=== PATIENT | female | born 1965 | race Caucasian/White ===

== ENCOUNTER 2016-11-13 12:33 | Inpatient (IN) | payer BC ==
[2016-11-13] VITALS (9 sets, daily range): BP systolic 145–170
[~2016-11-13] VITALS: Ht 162.6 cm; Wt 82.3 kg
[2016-11-13] MEDS ORDERED: DILTIAZEM HCL 125 MG in D5W 100 ML IV ONE (13:00)
[2016-11-13] MEDS ORDERED: DILTIAZEM HCL 25 MG/5 ML VIAL IVP ONE ×2 (13:00→14:15)
[2016-11-13] MEDS ORDERED: NACL 0.9% 1,000 ML IV ONE (13:00)
[2016-11-13] MEDS ORDERED: DILTIAZEM HCL 25 MG/5 ML VIAL ONE (13:01)
[2016-11-13] MEDS ORDERED: DILTIAZEM HCL 125 MG/25 ML VIAL IV ONE ×4 (13:17→21:57)
[2016-11-13 13:25] LABS: HEMATOCRIT 46.6 % (36-48); HEMOGLOBIN 15.5 g/dL (12.0-16.0); MEAN CORPUSCULAR HEMOGLOBIN 34 pg (27-31); MEAN CORPUSCULAR HGB CONC 33 % (32-36); MEAN CORPUSCULAR VOLUME 101 fL (79.0-98.0); PLATELET COUNT (AUTO) 432 K/uL (130-430); RED BLOOD CELL COUNT(AUTO) 4.61 MIL/uL (4.2-6.2); RED CELL DISTRIBUTION WIDTH 18.7 % (9.0-15.0); WHITE BLOOD COUNT (AUTO) 9.6 K/uL (4.8-10.8)
[2016-11-13] MEDS ORDERED: DILTIAZEM HCL IV ONE (13:30)
[2016-11-13] MEDS ORDERED: NS IV ONE (13:30)
[2016-11-13 13:32] LABS: CALCIUM 8.9 mg/dL (8.4-11.0); CREATININE 0.63 mg/dL (0.55-1.30); POTASSIUM 3.6 mmol/L (3.5-5.1)
[2016-11-13 13:37] LABS: PROTHROMBIN TIME 10.7 SECS (9.5-12.5)
[2016-11-13 13:38] LABS: TOTAL BILIRUBIN 0.5 mg/dL (0.0-1.0)
[2016-11-13 13:39] LABS: ALBUMIN 3.3 g/dL (3.4-4.8); TOTAL PROTEIN, SERUM 7.9 g/dL (6.4-8.3)
[2016-11-13 13:50] LABS: BAND % (MANUAL) 2 % (0-6); BASOPHILS % (MANUAL) 0 % (0-2); EOSINOPHILS % (MANUAL) 1 % (0-7); LYMPHOCYTES % (MANUAL) 20 % (20-46); MONOCYTES % (MANUAL) 8 % (0-11)
[2016-11-13 14:29] LABS: BILIRUBIN,URINE NEGATIVE (NEGATIVE); CLARITY/URINE SL CLOUDY (CLEAR); COLOR,URINE YELLOW (YELLOW); GLUCOSE,URINE NEGATIVE (NEGATIVE); KETONES,URINE 1+ (NEGATIVE); LEUKOCYTE ESTERASE ,URINE TRACE (NEGATIVE); NITRITE, URINE POSITIVE (NEGATIVE); PROTEIN URINE NEGATIVE (NEGATIVE)
[2016-11-13 14:51] LABS: BLOOD, URINE TRACE (NEGATIVE)
[2016-11-13 15:07] LABS: BACTERIA,URINE MANY /HPF (None Seen); RBC,URINE 0-3 /HPF (0-3)
[2016-11-13 15:08] LABS: MUCUS,URINE None Seen /LPF (None Seen)
[2016-11-13] MEDS ORDERED: cefTRIAXone 1 GM IVPB PREMIX 50 ML IV ONE (15:30)
[2016-11-13] MEDS ORDERED: BANANA BAG 1 EA, MVI 10 ML, THIAMINE HCL 100 MG, FOLIC ACID 1 MG, MAGNESIUM SULFATE 1 G... IV ONE ×5 (16:00)
[2016-11-13] MEDS ORDERED: DIGOXIN 0.5 MG/2 ML AMP IVP ONE ×2 (17:30→21:00)
[2016-11-13] MEDS ORDERED: DIGOXIN 0.5 MG/2 ML AMP ONE (17:42)
[2016-11-13] MEDS ORDERED: LORazepam 1 MG TABLET PO PRN (18:00)
[2016-11-13] MEDS ORDERED: FAMOTIDINE PF 20 MG/2 ML VIAL IVP ONE (18:00)
[2016-11-13] MEDS: LORazepam 2 MG/ML VIAL IVP PRN (18:23)
[2016-11-13] MEDS: LACTOBACILLUS RHAMNOSUS GG 1 CAP CAPSULE PO SCH (20:49)
[2016-11-13] MEDS: ENOXAPARIN SODIUM 40 MG/0.4 ML SYRINGE SUBCUT SCH (20:49)
[2016-11-13] MEDS: FAMOTIDINE PF 20 MG/2 ML VIAL IVP SCH (20:50)
[2016-11-13] MEDS: CEPHALEXIN 250 MG/5 ML, 100 ML BTL PO SCH ×2 (20:50→23:11)
[2016-11-13] MEDS: CIPROFLOXACIN LACT 400 MG/D5W 200 ML IV SCH (20:50)
[2016-11-13] MEDS ORDERED: DILTIAZEM HCL 180 MG CAP.SR.24H PO ONE ×2 (21:45→21:50)
[2016-11-13] MEDS ORDERED: DILTIAZEM HCL 125 MG in D5W 100 ML IV SCH (21:45)
[2016-11-13] MEDS ORDERED: FLU VACC QS 2016-17(36MOS+)/PF 0.5 ML/SYR SYRINGE I.M. PRN (22:45)
[2016-11-14] VITALS (24 sets, daily range): BP systolic 118–160
[2016-11-14] MEDS ORDERED: DIGOXIN 0.5 MG/2 ML AMP IVP ONE (01:45)
[2016-11-14] MEDS: LORazepam 2 MG/ML VIAL IVP PRN ×2 (05:10→21:13)
[2016-11-14] MEDS: CEPHALEXIN 250 MG/5 ML, 100 ML BTL PO SCH ×4 (05:10→23:39)
[2016-11-14 06:29] LABS: BASOPHILS # (AUTO) 0.1 K/uL (0.0-0.2); EOSINOPHILS # (AUTO) 0.1 K/uL (0.0-0.4); EOSINOPHILS % (AUTO) 0.9 % (0.0-4.0); HEMATOCRIT 43.3 % (36-48); HEMOGLOBIN 14.5 g/dL (12.0-16.0); LYMPHOCYTES # (AUTO) 1.4 K/uL (1.0-5.5); LYMPHOCYTES % (AUTO) 18.7 % (20.5-51.5); MEAN CORPUSCULAR HEMOGLOBIN 34 pg (27-31); MEAN CORPUSCULAR HGB CONC 34 % (32-36); MEAN CORPUSCULAR VOLUME 101 fL (79.0-98.0); MONOCYTES # (AUTO) 0.5 K/uL (0.0-1.0); MONOCYTES % (AUTO) 7.2 % (1.7-9.3); NEUTROPHILS # (AUTO) 5.1 K/uL (1.8-7.7); NEUTROPHILS % (AUTO) 72.2 % (40.0-70.0); PLATELET COUNT (AUTO) 383 K/uL (130-430); RED BLOOD CELL COUNT(AUTO) 4.29 MIL/uL (4.2-6.2); RED CELL DISTRIBUTION WIDTH 18.8 % (9.0-15.0); WHITE BLOOD COUNT (AUTO) 7.2 K/uL (4.8-10.8)
[2016-11-14 06:42] LABS: ALBUMIN 2.8 g/dL (3.4-4.8); CALCIUM 8.9 mg/dL (8.4-11.0); CREATININE 0.6 mg/dL (0.55-1.30); POTASSIUM 3.8 mmol/L (3.5-5.1); TOTAL BILIRUBIN 0.5 mg/dL (0.0-1.0)
[2016-11-14] MEDS: CIPROFLOXACIN LACT 400 MG/D5W 200 ML IV SCH ×2 (08:49→21:05)
[2016-11-14] MEDS: FOLIC ACID 1 MG TABLET PO SCH (08:54)
[2016-11-14] MEDS: THIAMINE HCL 100 MG TABLET PO SCH (08:54)
[2016-11-14] MEDS: ENOXAPARIN SODIUM 40 MG/0.4 ML SYRINGE SUBCUT SCH ×2 (08:54→21:07)
[2016-11-14] MEDS: FAMOTIDINE PF 20 MG/2 ML VIAL IVP SCH ×2 (08:54→21:05)
[2016-11-14] MEDS: LACTOBACILLUS RHAMNOSUS GG 1 CAP CAPSULE PO SCH ×2 (08:55→21:06)
[2016-11-14] MEDS ORDERED: DILTIAZEM HCL 125 MG in D5W 100 ML IV SCH (09:25)
[2016-11-14] MEDS ORDERED: DILTIAZEM HCL 120 MG CAP.SR.24H PO SCH (11:45)
[2016-11-14] MEDS ORDERED: DILTIAZEM HCL 120 MG CAP.SR.24H PO ONE (11:45)
[2016-11-14] MEDS: LamoTRIgine 100 MG TABLET PO SCH ×2 (12:00→17:31)
[2016-11-14] MEDS: DULoxetine HCL 30 MG CAPSULE.DR (CYMBALTA) PO ONE ×2 (12:15→17:31)
[2016-11-14] MEDS: LATANOPROST 2.5 ML DROPS (XALATAN) OP SCH ×3 (12:15→21:12)
[2016-11-14] MEDS: AMIODARONE HCL 200 MG TABLET PO SCH ×2 (17:31→21:06)
[2016-11-14] MEDS: SIMVASTATIN 10 MG TABLET PO SCH (17:33)
[2016-11-14] MEDS: DILTIAZEM HCL 120 MG CAP.SR.24H PO SCH (21:06)
[2016-11-15] VITALS (21 sets, daily range): BP systolic 116–160
[2016-11-15] MEDS ORDERED: TEMAZEPAM 15 MG CAPSULE PO PRN
[2016-11-15] MEDS ORDERED: traMADol HCL HCL 50 MG TABLET (ULTRAM) PO PRN ×2
[2016-11-15] MEDS ORDERED: traMADol HCL HCL 50 MG TABLET (ULTRAM) ONE (00:16)
[2016-11-15] MEDS: CEPHALEXIN 250 MG/5 ML, 100 ML BTL PO SCH ×3 (05:53→18:31)
[2016-11-15] MEDS: AMIODARONE HCL 200 MG TABLET PO SCH ×3 (05:55→21:26)
[2016-11-15 06:32] LABS: ALBUMIN 2.8 g/dL (3.4-4.8); CALCIUM 8.9 mg/dL (8.4-11.0); CREATININE 0.75 mg/dL (0.55-1.30); POTASSIUM 3.2 mmol/L (3.5-5.1); TOTAL BILIRUBIN 0.4 mg/dL (0.0-1.0); TOTAL PROTEIN, SERUM 6.7 g/dL (6.4-8.3)
[2016-11-15 06:38] LABS: BASOPHILS # (AUTO) 0.1 K/uL (0.0-0.2); BASOPHILS % (AUTO) 1.2 % (0.0-2.0); EOSINOPHILS # (AUTO) 0.1 K/uL (0.0-0.4); EOSINOPHILS % (AUTO) 2.4 % (0.0-4.0); HEMATOCRIT 42.3 % (36-48); HEMOGLOBIN 13.5 g/dL (12.0-16.0); LYMPHOCYTES # (AUTO) 1.4 K/uL (1.0-5.5); MEAN CORPUSCULAR HEMOGLOBIN 33 pg (27-31); MEAN CORPUSCULAR HGB CONC 32 % (32-36); MEAN CORPUSCULAR VOLUME 102 fL (79.0-98.0); MONOCYTES # (AUTO) 0.4 K/uL (0.0-1.0); MONOCYTES % (AUTO) 7.5 % (1.7-9.3); NEUTROPHILS # (AUTO) 3.4 K/uL (1.8-7.7); NEUTROPHILS % (AUTO) 62.9 % (40.0-70.0); PLATELET COUNT (AUTO) 326 K/uL (130-430); RED BLOOD CELL COUNT(AUTO) 4.13 MIL/uL (4.2-6.2); RED CELL DISTRIBUTION WIDTH 17.8 % (9.0-15.0); WHITE BLOOD COUNT (AUTO) 5.4 K/uL (4.8-10.8)
[2016-11-15] MEDS: FAMOTIDINE PF 20 MG/2 ML VIAL IVP SCH ×2 (08:30→21:23)
[2016-11-15] MEDS: CIPROFLOXACIN LACT 400 MG/D5W 200 ML IV SCH ×2 (08:30→21:27)
[2016-11-15] MEDS: DILTIAZEM HCL 120 MG CAP.SR.24H PO SCH ×2 (08:31→21:24)
[2016-11-15] MEDS: FOLIC ACID 1 MG TABLET PO SCH (08:31)
[2016-11-15] MEDS: DULoxetine HCL 30 MG CAPSULE.DR (CYMBALTA) PO SCH (08:31)
[2016-11-15] MEDS: LACTOBACILLUS RHAMNOSUS GG 1 CAP CAPSULE PO SCH ×2 (08:31→21:25)
[2016-11-15] MEDS: ENOXAPARIN SODIUM 40 MG/0.4 ML SYRINGE SUBCUT SCH ×2 (08:32→21:25)
[2016-11-15] MEDS: LamoTRIgine 100 MG TABLET PO SCH (08:44)
[2016-11-15] MEDS: THIAMINE HCL 100 MG TABLET PO SCH (09:46)
[2016-11-15] MEDS ORDERED: POTASSIUM CHLORIDE 20 MEQ/PKT PACKET PO ONE (10:00)
[2016-11-15] MEDS ORDERED: POTASSIUM CHLORIDE 20 MEQ TAB.PRT.SR PO ONE (14:00)
[2016-11-15] MEDS ORDERED: buPROPion HCL 150 MG XL TAB PO ONE (14:15)
[2016-11-15 14:46] LABS: THYROID STIMULATING HORMONE 2.73 uIu/mL (0.34-4.82)
[2016-11-15] MEDS: SIMVASTATIN 10 MG TABLET PO SCH (18:31)
[2016-11-15] MEDS: LATANOPROST 2.5 ML DROPS (XALATAN) OP SCH (21:22)
[2016-11-15] MEDS: POTASSIUM CHLORIDE 20 MEQ/PKT PACKET PO SCH (21:28)
[2016-11-15] MEDS ORDERED: CARISOPRODOL 350 MG TABLET PO PRN (23:00)
[2016-11-16] MEDS: CEPHALEXIN 250 MG/5 ML, 100 ML BTL PO SCH ×3 (00:16→12:41)
[2016-11-16 04:18] VITALS: BP_SYST 120
[2016-11-16 06:21] LABS: BASOPHILS # (AUTO) 0.1 K/uL (0.0-0.2); BASOPHILS % (AUTO) 0.9 % (0.0-2.0); EOSINOPHILS # (AUTO) 0.2 K/uL (0.0-0.4); EOSINOPHILS % (AUTO) 2.6 % (0.0-4.0); HEMATOCRIT 37.4 % (36-48); HEMOGLOBIN 12.4 g/dL (12.0-16.0); LYMPHOCYTES # (AUTO) 1.4 K/uL (1.0-5.5); LYMPHOCYTES % (AUTO) 21.4 % (20.5-51.5); MEAN CORPUSCULAR HEMOGLOBIN 34 pg (27-31); MEAN CORPUSCULAR HGB CONC 33 % (32-36); MEAN CORPUSCULAR VOLUME 102 fL (79.0-98.0); MONOCYTES # (AUTO) 0.4 K/uL (0.0-1.0); MONOCYTES % (AUTO) 5.7 % (1.7-9.3); NEUTROPHILS # (AUTO) 4.4 K/uL (1.8-7.7); NEUTROPHILS % (AUTO) 69.4 % (40.0-70.0); PLATELET COUNT (AUTO) 252 K/uL (130-430); RED BLOOD CELL COUNT(AUTO) 3.66 MIL/uL (4.2-6.2); RED CELL DISTRIBUTION WIDTH 17.1 % (9.0-15.0); WHITE BLOOD COUNT (AUTO) 6.5 K/uL (4.8-10.8)
[2016-11-16 06:37] LABS: ALBUMIN 2.5 g/dL (3.4-4.8); CALCIUM 8.6 mg/dL (8.4-11.0); CREATININE 0.66 mg/dL (0.55-1.30); POTASSIUM 3.5 mmol/L (3.5-5.1); TOTAL BILIRUBIN 0.4 mg/dL (0.0-1.0)
[2016-11-16] MEDS: AMIODARONE HCL 200 MG TABLET PO SCH (06:42)
[2016-11-16 08:00] VITALS: BP_SYST 136
[2016-11-16] MEDS ORDERED: buPROPion HCL 150 MG XL TAB PO SCH (09:00)
[2016-11-16] MEDS: POTASSIUM CHLORIDE 20 MEQ/PKT PACKET PO SCH (09:08)
[2016-11-16] MEDS: DILTIAZEM HCL 120 MG CAP.SR.24H PO SCH (09:09)
[2016-11-16] MEDS: LamoTRIgine 100 MG TABLET PO SCH (09:09)
[2016-11-16] MEDS: LACTOBACILLUS RHAMNOSUS GG 1 CAP CAPSULE PO SCH (09:09)
[2016-11-16] MEDS: FOLIC ACID 1 MG TABLET PO SCH (09:09)
[2016-11-16] MEDS: DULoxetine HCL 30 MG CAPSULE.DR (CYMBALTA) PO SCH (09:09)
[2016-11-16] MEDS: FAMOTIDINE PF 20 MG/2 ML VIAL IVP SCH (09:10)
[2016-11-16] MEDS: THIAMINE HCL 100 MG TABLET PO SCH (09:14)
[2016-11-16] MEDS: ENOXAPARIN SODIUM 40 MG/0.4 ML SYRINGE SUBCUT SCH (09:17)
[2016-11-16] MEDS: CIPROFLOXACIN LACT 400 MG/D5W 200 ML IV SCH (09:17)
[2016-11-16 11:37] VITALS: BP_SYST 124
[2016-11-16] MEDS ORDERED: ASPIRIN 81 MG TAB.CHEW PO ONE (11:45)
[2016-11-16 13:47] VITALS: BP_SYST 124
[2016-11-16] MEDS ORDERED: FAMOTIDINE 20 MG TABLET PO SCH (21:00)
[2016-11-16] MEDS ORDERED: AMIODARONE HCL 200 MG TABLET PO SCH (21:00)
[2016-11-17] MEDS ORDERED: ASPIRIN 81 MG TAB.CHEW PO SCH (09:00)
[2016-11-17] MEDS ORDERED: DILTIAZEM HCL 240 MG CAP.SR.24H PO SCH (09:00)
== END 2016-11-16 14:00 | disposition home or self-care (01) | DRG 309 ==
LOC: SED 12:33 → SIC 15:50 → STU 11-15 18:50
PROVIDERS: ADMIT Internal Medicine; ATTEND Internal Medicine
DX: I48.91 Unspecified atrial fibrillation (principal); N39.0 Urinary tract infection, site not specified; E44.0 Moderate protein-calorie malnutrition; K70.10 Alcoholic hepatitis without ascites; I10 Essential (primary) hypertension; F10.20 Alcohol dependence, uncomplicated; R16.0 Hepatomegaly, not elsewhere classified; E78.00 Pure hypercholesterolemia, unspecified; B96.20 Unspecified Escherichia coli [E. coli] as the cause of diseases classified elsewhere; F32.9 Major depressive disorder, single episode, unspecified; Z98.84 Bariatric surgery status; Z87.891 Personal history of nicotine dependence; Z82.49 Family history of ischemic heart disease and other diseases of the circulatory system; E87.6 Hypokalemia; Z83.3 Family history of diabetes mellitus; Z88.0 Allergy status to penicillin; Z90.710 Acquired absence of both cervix and uterus; Z90.49 Acquired absence of other specified parts of digestive tract; Z81.1 Family history of alcohol abuse and dependence; Z68.31 Body mass index [BMI] 31.0-31.9, adult; Z23 Encounter for immunization
CPT/HCPCS: 36415; 76700-TC; 80053; 80061; 81000-TC; 82140-TC; 83036; 83605; 83735-TC; 84439; 84443-TC; 84484; 85007; 85025; 85027; 85610-TC; 85730-TC; 87040-TC; 87081; 87086; 87186-TC; 93005; 93306; 96361; 96365; 96375; 99285; A6209; G0482; J0696; J0744; J1160; J1650; J2060; J3411; J3475; J3490; J7030; J7050; J7060